=== PATIENT | female | born 1940 | race Caucasian/White ===

== ENCOUNTER 2021-03-03 13:12 | Outpatient (REF) | payer MEDICARE, OTHER, SELFPAY ==
--- NOTE | ~2021-03-03 | XR_ITS ---
EXAMINATION: XR KNEE, LEFT CLINICAL INFORMATION: Osteoarthritis knee. COMPARISON: None TECHNIQUE: Four views of the left knee. FINDINGS: There is mild osteopenia. There is no fracture, dislocation, or destructive process. There are marginal osteophytes involving the femoral condyles and tibial plateau. No significant medial lateral knee joint compartment narrowing and no erosion or chondrocalcinosis. The axial view patella shows narrowing patellofemoral joint. No lateralization or tilting patella. The lateral view shows suprapatellar effusion. Hoffa's fat pad appears normal. XR/XR knee LT 4V IMPRESSION: 1. Mild osteoarthritic changes patellofemoral joint. 2. Spurring femoral condyles and tibial plateau without significant joint narrowing. 3. Suprapatellar effusion.
== END 2021-03-03 13:13 | disposition home or self-care (01) ==
LOC: HO.XRAY 13:12
PROVIDERS: Visit Provider Psychiatry & Neurology Neurology
DX: M17.9 Osteoarthritis of knee, unspecified (principal)
CPT/HCPCS: 73564

== ENCOUNTER 2021-03-13 15:44 | Outpatient (REF) | payer MEDICARE, OTHER, SELFPAY ==
--- NOTE | ~2021-03-13 | MR_ITS ---
EXAMINATION: MR CERVICAL SPINE WITHOUT CONTRAST CLINICAL INFORMATION: Back pain. Bilateral leg weakness. Bilateral finger pain. COMPARISON: None TECHNIQUE: MRI of the cervical spine was obtained using routine sequences without contrast. FINDINGS: VERTEBRAL BODIES AND PARASPINAL SOFT TISSUES: Mild reversal of the normal cervical lordosis. Grade 1 anterolisthesis of C3 on C4 as well as grade 1 anterolisthesis of C7 on T1. No acute fracture. No loss of vertebral body height. Loss of intervertebral disc height with disc desiccation at C4-T1 with degenerative endplate changes. No evidence of acute osseous injury. Severe bilateral facet arthropathy with associated marrow edema. No abnormal signal within the visualized cord. The paraspinal soft tissues are unremarkable. CERVICOMEDULLARY JUNCTION AND VISUALIZED POSTERIOR FOSSA: Unremarkable. SPINAL LEVELS: C2-C3: No significant disc bulge. No central canal or neural foraminal stenosis. C3-C4: Mild grade 1 anterolisthesis of C3 on C4 with a small posterior central disc protrusion which completely effaces the ventral thecal sac. Bilateral facet arthropathy without significant neural foraminal stenosis. C4-C5: Broad-based disc-osteophyte complex which completely effaces the ventral thecal sac and minimally indents the adjacent cord. Bilateral facet arthropathy and uncinate spurring with moderate bilateral neural foraminal stenosis. C5-C6: Broad-based disc-osteophyte complex, asymmetric to the right which completely effaces the ventral thecal sac. Bilateral facet arthropathy and uncinate spurring with moderate bilateral neural foraminal stenosis. C6-C7: Broad-based disc-osteophyte complex which completely effaces the ventral thecal sac and minimally indents the adjacent cord. Bilateral facet arthropathy and uncinate spurring with mild bilateral neural foraminal stenosis. C7-T1: Grade 1 anterolisthesis of C7 on T1 with a small broad-based disc bulge as well as left-sided facet arthropathy and uncinate spurring causing mild left neural foraminal stenosis. MR/MR cervical spine wo con IMPRESSION: 1. Reversal of the normal cervical lordosis, which may be positional or related to muscular spasm. Grade 1 anterolisthesis of C3 on C4 and C7 on T1. 2. No acute osseous injury. 3. Severe multilevel degenerative disc disease with degenerative endplate changes as well as bilateral facet arthropathy and multilevel central canal/bilateral neural foraminal stenosis, as above.
--- NOTE | ~2021-03-13 | MR_ITS ---
EXAMINATION: MR THORACIC SPINE WITHOUT CONTRAST CLINICAL INFORMATION: Back pain. Bilateral finger pain. Bilateral leg weakness. COMPARISON: None TECHNIQUE: MRI of the thoracic spine was obtained using routine sequences without contrast. FINDINGS: VERTEBRAL BODIES AND PARASPINAL STRUCTURES: Dextrocurvature of the thoracic spine. The thoracic kyphosis is maintained. No acute fracture or subluxation. No loss of vertebral body height. Multilevel loss of intervertebral disc height with disc desiccation and small multilevel endplate osteophytes. No marrow edema to suggest acute osseous injury. Decreased T1/T2 marrow signal throughout the visualized osseous structures, which can be seen in the setting of marrow reconversion. This can be seen in response to physiologic stimuli such as obesity, cigarette smoking, and heavy athletic training or a pathologic condition such as chronic hemolytic anemia and marrow replacing disorders. The visualized paraspinal soft tissues are unremarkable. SPINAL LEVELS: C7-T1: Left-sided facet arthropathy. No central canal or neural foraminal stenosis. T1-T2: No significant disc bulge. No central canal or neural foraminal stenosis. T2-T3: No significant disc bulge. No central canal or neural foraminal stenosis. T3-T4: No significant disc bulge. No central canal or neural foraminal stenosis. T4-T5: Mild right-sided uncinate spurring. No central canal or neural foraminal stenosis. T5-T6: No significant disc bulge. No central canal or neural foraminal stenosis. T6-T7: Left paracentral disc protrusion which partially effaces the ventral thecal sac. No significant neural foraminal stenosis. T7-T8: No significant disc bulge. No central canal or neural foraminal stenosis. T8-T9: No significant disc bulge. No central canal or neural foraminal stenosis. T9-T10: No significant disc bulge. No central canal or neural foraminal stenosis. T10-T11: No significant disc bulge. Bilateral facet arthropathy with mild left neural foraminal stenosis. T11-T12: No significant disc bulge. Bilateral facet arthropathy. No significant neural foraminal stenosis. T12-L1: No significant disc bulge. Bilateral facet arthropathy. No neural foraminal stenosis. MR/MR thoracic spine wo con IMPRESSION: 1. Dextrocurvature of the thoracic spine. No acute fracture or subluxation. No evidence of acute osseous abnormality. 2. Left paracentral disc protrusion at T6-T7 which partially effaces the ventral thecal sac without significant neural foraminal stenosis. 3. Bilateral facet arthropathy at T10-T11 with mild left neural foraminal stenosis. Additional multilevel bilateral facet arthropathy without significant neural foraminal stenosis.
== END 2021-03-13 15:45 | disposition home or self-care (01) ==
LOC: HO.MRI 15:44
PROVIDERS: Visit Provider Psychiatry & Neurology Neurology
DX: G95.9 Disease of spinal cord, unspecified (principal)
CPT/HCPCS: 72141; 72146